=== PATIENT | female | born 1955 | race Caucasian/White ===

== ENCOUNTER 2016-07-14 12:03 | Outpatient (CLI) | payer BC ==
--- NOTE | 2016-07-14 18:57 | Diagnostic Imaging Report ---
[facility] [address] [facility].[address] [id number] Report Submission Date: Jul 14, 2016 4:56:55 PM [employer] Patient Study Name: VINAYAK ROJO Date: Jul 14, 2016 12:13:22 PM [employer] Modality Type: CR Gender: F Description: CHEST : 57 Institution: [facility] Physician: AHSAN OLIVERA Chest - two views Clinical history: Cough for about 2 weeks. Shortness of breath. Chest pain with coughing. Findings: Examination of the chest in PA and lateral views with no prior film for comparison demonstrates the lungs to be clear. Cardiac silhouette is prominent. There are mild spondylitic changes in the thoracic vertebrae. Impression: 1. Left ventricular prominence. 2. No active disease. Electronically signed on Jul 14, 2016 4:56:55 PM [employer] by: Inocencio LOZADA
== END 2016-07-14 12:04 ==
LOC: RAD 12:03
PROVIDERS: ATTEND Family Medicine
DX: R05 Cough (principal)
CPT/HCPCS: 71020